=== PATIENT | male | born 1975 | race Two or more races ===

== ENCOUNTER 2017-08-08 22:50 | Emergency (ER) | payer OTHER ==
[~2017-08-08] VITALS: Ht 167.6 cm; Wt 74.8 kg
[2017-08-08 23:23] LABS: Basophils # (auto) 0.1 uL; Basophils % (auto) 0.7 % (0.0-2.0); Eosinophils # (auto) 0.2 uL; Eosinophils % (auto) 1.7 % (0.0-7.0); Hematocrit 43.8 % (41.0-53.0); Hemoglobin 14.8 g/dL (13.5-17.5); Lymphocytes # (auto) 1.9 uL; Mean Corpuscular Hemoglobin 29.6 pg (28.0-32.0); Mean Corpuscular Hgb Conc. 33.8 g/dL (32.0-36.0); Mean Corpuscular Volume 87.6 fL (80.0-100.0); Mean Platelet Volume 9.2 fL (6.9-10.8); Monocytes % (auto) 8.5 % (0.0-12.0); Neutrophils # (auto) 8.6 uL; Neutrophils % (auto) 73.1 % (37.0-80.0); Nucleated Red Blood Cells % 0.1 %; Platelet Count (auto) 185 10^3/uL (140-450); Red Cell Distribution Width 14.7 % (11.8-14.3); White Blood Cell 11.8 10^3/uL (4.4-10.8)
[2017-08-08 23:42] LABS: Albumin 4.4 g/dL (3.4-5.0); Anion Gap 8 (5-15); Aspartate Aminotransferase 14 U/L (15-37); BUN/Creatinine Ratio 12.4; Blood Urea Nitrogen 13 mg/dL (7-18); Calcium 9.1 mg/dL (8.5-10.1); Carbon Dioxide 25 mmol/L (21-32); Chloride 106 mmol/L (98-107); GFR African American 100 mL/min; GFR Non-African American 83 mL/min; Glucose 94 mg/dL (74-106); Potassium 3.7 mmol/L (3.5-5.1); Sodium 139 mmol/L (136-145)
[2017-08-08 23:47] LABS: Alkaline Phosphatase 137 U/L (45-117); Bilirubin, Total 0.3 mg/dL (0.2-1.0)
[2017-08-09 00:04] LABS: Urine RBC None Seen /hpf (0 - 3)
[2017-08-09 00:11] LABS: Temperature: 23.9 C (20.0-25.0)
[2017-08-09 00:20] LABS: Urine Bilirubin Negative (Negative); Urine Blood Negative /uL (Negative); Urine Color Yellow (Yellow); Urine Glucose Normal (Normal); Urine Ketone Negative (Negative); Urine Nitrite Negative (Negative); Urine Urobilinogen Normal (Negative)
[2017-08-09 01:06] VITALS: BP 123/74
== END 2017-08-09 01:32 | disposition home or self-care (01) ==
LOC: EDBD 22:50 → ER 22:56
DX: R07.89 Other chest pain (principal); R00.2 Palpitations; M54.9 Dorsalgia, unspecified
CPT/HCPCS: 36415; 71010; 80053; 80307; 81001; 83690; 83880; 84484; 85025; 93005; 94761

== ENCOUNTER 2017-08-12 14:49 | Emergency (ER) | payer OTHER ==
[~2017-08-12] VITALS: Ht 170.2 cm; Wt 80.3 kg
[2017-08-12 15:05] VITALS: BP 117/82
== END 2017-08-12 16:34 | disposition home or self-care (01) ==
LOC: ER 14:49
DX: S46.911A Strain of unspecified muscle, fascia and tendon at shoulder and upper arm level, right arm, initial encounter (principal); X58.XXXA Exposure to other specified factors, initial encounter; Y93.73 Activity, racquet and hand sports; Y92.89 Other specified places as the place of occurrence of the external cause; Y99.8 Other external cause status
CPT/HCPCS: 73030